=== PATIENT | male | born 2000 | race Caucasian/White ===

== ENCOUNTER 2019-12-20 22:04 | Emergency (ER) | payer MEDICAID, OTHER, SELFPAY ==
[~2019-12-20] VITALS: Ht 165.1 cm; Wt 76.2 kg
[2019-12-20] MEDS ORDERED: SODIUM CHLORIDE 0.9% 1,000ML IVBOLUS ONE (23:00)
[2019-12-20] MEDS ORDERED: ONDANSETRON 2MG/ML, 2ML IVPush ONE (23:00)
[2019-12-20] MEDS ORDERED: PROMETHAZINE 25 MG/ML, 1ML IM ONE (23:00)
[2019-12-20] MEDS ORDERED: PROMETHAZINE 25 MG/ML, 1ML ONE (23:10)
[2019-12-20] MEDS ORDERED: ONDANSETRON 2MG/ML, 2ML ONE (23:10)
[2019-12-20 23:15] VITALS: BP 144/85
[2019-12-20 23:19] LABS: PH, VENOUS 7.355 pH (7.320-7.420)
[2019-12-20] MEDS ORDERED: INSU100C SQ-INSULIN (23:20)
--- NOTE | 2019-12-20 23:20 | NUR ---
BREAK RN: PT. MEDICATED PER MAR. VS UPDATED. MOTHER AT BS. ALL SAFTEY MEASURES OBSERVED.
[2019-12-20 23:24] LABS: BASOPHILS # (AUTO) 0.04 x10^3/uL (0-0.1); BASOPHILS % (AUTO) 0 % (0-1); EOSINOPHILS # (AUTO) 0.24 x10^3/uL (0-0.4); EOSINOPHILS % (AUTO) 2 % (1-7); LYMPHOCYTES # (AUTO) 1.11 x10^3/uL (1-3.4); LYMPHOCYTES % (AUTO) 9 % (22-44); MD NO; MEAN CORPUSCULAR HEMOGLOBIN 29.2 pg (27.5-34.5); MEAN CORPUSCULAR HGB CONC 33.3 g/dL (33.2-36.2); MEAN CORPUSCULAR VOLUME 87.6 fL (81-97); MEAN PLATELET VOLUME 9.1 fL (7.4-10.4); MONOCYTES # (AUTO) 0.48 x10^3/uL (0.2-0.8); MONOCYTES % (AUTO) 4 % (2-9); NEUTROPHILS # (AUTO) 10.53 x10^3/uL (1.8-6.8); NEUTROPHILS % (AUTO) 85 % (42-75); PLATELET COUNT 286 x10^3/uL (130-400); RED CELL DISTRIBUTION WIDTH 12.6 % (9.4-14.8)
[2019-12-20 23:30] LABS: ALANINE AMINOTRANSFERASE 20 U/L (12-78); ALBUMIN 4.4 g/dL (3.4-5.0); ANION GAP 8 mmol/L (5-15); CALCIUM 9.3 mg/dL (8.5-10.1); CHLORIDE 104 mmol/L (98-107); CREATININE 0.81 mg/dL (0.7-1.3)
[2019-12-20 23:32] LABS: ALKALINE PHOSPHATASE 81 U/L (45-117); BILIRUBIN,TOTAL 0.5 mg/dL (0.2-1.0); CREATINE KINASE, TOTAL 202 U/L (39-308); TOTAL PROTEIN 8.2 g/dL (6.4-8.2)
[2019-12-21 00:01] LABS: ACETONE, SERUM Small (20mg/dL) (Negative)
--- NOTE | 2019-12-21 00:28 | NUR ---
Patient given discharge instructions and they have confirmed that they understand the instructions. Patient ambulatory with steady gait.
== END 2019-12-21 00:30 | disposition home or self-care (01) ==
LOC: ED 23:30
DX: E10.65 Type 1 diabetes mellitus with hyperglycemia (principal); R11.2 Nausea with vomiting, unspecified; R10.84 Generalized abdominal pain; R00.0 Tachycardia, unspecified; R19.7 Diarrhea, unspecified
CPT/HCPCS: 36415; 80053; 82010; 82550; 82803; 83690; 85025; 93005; 96361; 96372; 96374; 99284; J2405; J2550; J7030

== ENCOUNTER 2019-12-22 19:03 | Observation (INO) | payer OTHER ==
[~2019-12-22] VITALS: Ht 167.6 cm; Wt 69.7 kg
[~2019-12-22 19:03] MED LIST: INSU100C SQ-INSULIN
[2019-12-22 19:43] LABS: BASOPHILS # (AUTO) 0.04 x10^3/uL (0-0.1); BASOPHILS % (AUTO) 0 % (0-1); EOSINOPHILS # (AUTO) 0.34 x10^3/uL (0-0.4); EOSINOPHILS % (AUTO) 3 % (1-7); LYMPHOCYTES # (AUTO) 1.74 x10^3/uL (1-3.4); LYMPHOCYTES % (AUTO) 17 % (22-44); MD NO; MEAN CORPUSCULAR HEMOGLOBIN 29.1 pg (27.5-34.5); MEAN CORPUSCULAR VOLUME 88.2 fL (81-97); MEAN PLATELET VOLUME 8.4 fL (7.4-10.4); MONOCYTES # (AUTO) 0.57 x10^3/uL (0.2-0.8); MONOCYTES % (AUTO) 6 % (2-9); NEUTROPHILS # (AUTO) 7.68 x10^3/uL (1.8-6.8); NEUTROPHILS % (AUTO) 74 % (42-75); PLATELET COUNT 294 x10^3/uL (130-400); RED BLOOD COUNT 5.27 x10^6/uL (4.38-5.82); RED CELL DISTRIBUTION WIDTH 12.5 % (9.4-14.8)
[2019-12-22 19:54] LABS: ALANINE AMINOTRANSFERASE 22 U/L (12-78); ALBUMIN 4.2 g/dL (3.4-5.0); ANION GAP 7 mmol/L (5-15); CALCIUM 9.3 mg/dL (8.5-10.1); CHLORIDE 106 mmol/L (98-107); CREATININE 0.86 mg/dL (0.7-1.3)
[2019-12-22 19:56] LABS: ALKALINE PHOSPHATASE 86 U/L (45-117); BILIRUBIN,TOTAL 1.2 mg/dL (0.2-1.0); TOTAL PROTEIN 8.3 g/dL (6.4-8.2)
--- NOTE | 2019-12-22 20:06 | NUR ---
PT TO ROOM FROM LOBBY AT THIS TIME.
[2019-12-22 20:17] LABS: ACETONE, SERUM Trace (Negative)
--- NOTE | 2019-12-22 20:17 | NUR ---
GENERALIZED ABD PAIN, VOMITING SINCE SEDDAY, SEEN FOR SAME ON WED NOC, 99.6F FEVER AT HOME, PALPS SINCE LAST NOC. 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 ALL MONITORS IN PLACE. CALL LIGHT WITHIN REACH. RAILS UP X2. PT'S FATHER AT BEDSIDE.
--- NOTE | 2019-12-22 20:58 | NUR ---
PT AMB TO BR WITH STEADY GAIT. URINE CUP GIVEN.
[2019-12-22 21:12] LABS: MICROSCOPIC NOT IND
[2019-12-22 21:17] LABS: CULTURE INDICATED? NO
[2019-12-22] MEDS ORDERED: ONDANSETRON 2MG/ML, 2ML ONE (21:17)
[2019-12-22] MEDS ORDERED: ONDANSETRON 2MG/ML, 2ML IVPush ONE (21:30)
[2019-12-22] MEDS ORDERED: SODIUM CHLORIDE FLUSH 10ML SYR IVF ONE (21:30)
[2019-12-22] MEDS ORDERED: SODIUM CHLORIDE 0.9% 1,000ML IVBOLUS ONE (21:30)
--- NOTE | 2019-12-22 21:35 | NUR ---
PIV EST ON L AC WITH NO COMPLICATIONS. PT MEDICATED PER EMAR. PT TOLERATED WELL. NS INFUSING AT THIS TIME.
--- NOTE | 2019-12-22 22:31 | NUR ---
EDMD AT BEDSIDE AT THIS TIME.
--- NOTE | 2019-12-22 22:49 | NUR ---
WATER GIVEN FOR PO CHALLENGE AT THIS TIME.
--- NOTE | 2019-12-22 23:19 | NUR ---
PT STATES "I FEEL NAUSEATED STILL. I NEED MORE TIME. GIVE ME 30MIN OR SO." PA NOTIFIED.
[2019-12-22] MEDS: PROMETHAZINE 25 MG/ML, 1ML IM ONE ×2 (23:24→23:45)
--- NOTE | 2019-12-22 23:24 | NUR ---
PT REFUSED MED AT THIS TIME.
--- NOTE | 2019-12-22 23:39 | NUR ---
pt states"i wanna take one more med."
[2019-12-22] MEDS ORDERED: PROMETHAZINE 25 MG/ML, 1ML ONE (23:43)
--- NOTE | 2019-12-22 23:46 | NUR ---
PT MEDICATED PER EMAR FOR NAUSEA. PT STATES"I FEEL NAUSEATED AGAIN"
--- NOTE | 2019-12-23 00:09 | NUR ---
bg 66 at this time. pa notified. juice provided at this time.
--- NOTE | 2019-12-23 00:35 | NUR ---
PT STATES " I DON'T FEEL GOOD." PT IS PALE. PT'S AOX4. RESPS EVEN AND UNLABORED. ALL MONITORS IN PLACE. CALL LIGHT WITHIN REACH.
--- NOTE | 2019-12-23 00:47 | NUR ---
report given to [facility].
--- NOTE | 2019-12-23 00:53 | NUR ---
REPORT RECEIVED FROM FRANCK FARRELL. PLAN OF CARE DISCUSSED. FSBS [id number]
[2019-12-23] MEDS ORDERED: METOCLOPRAMIDE 5 MG/ML, 2ML IVPush PRN (01:30)
[2019-12-23] MEDS ORDERED: ACETAMINOPHEN 325 MG TABLET PO PRN (01:30)
[2019-12-23] MEDS ORDERED: ONDANSETRON 2MG/ML, 2ML IVPush PRN (01:30)
[2019-12-23] MEDS ORDERED: PROMETHAZINE 25 MG/ML, 1ML IM PRN (01:30)
--- NOTE | 2019-12-23 01:32 | NUR ---
REPORT GIVEN TO FRANCK MATOS. PLAN OF CARE DISCUSSED.
[2019-12-23 01:50] VITALS: BP 126/76
[2019-12-23 07:01] VITALS: BP 113/76
[2019-12-23 12:01] VITALS: BP 114/68
[2019-12-23 15:57] VITALS: BP 116/77
[2019-12-23] MEDS: D5%-0.45% NACL 1,000 ML IV SCH (17:33)
[2019-12-23 19:35] VITALS: BP 126/81
[2019-12-24 03:09] VITALS: BP 115/68
[2019-12-24] MEDS: D5%-0.45% NACL 1,000 ML IV SCH ×2 (06:01→20:10)
[2019-12-24 06:03] LABS: BASOPHILS # (AUTO) 0.05 x10^3/uL (0-0.1); BASOPHILS % (AUTO) 1 % (0-1); EOSINOPHILS # (AUTO) 0.52 x10^3/uL (0-0.4); EOSINOPHILS % (AUTO) 6 % (1-7); LYMPHOCYTES # (AUTO) 2.55 x10^3/uL (1-3.4); LYMPHOCYTES % (AUTO) 29 % (22-44); MD NO; MEAN CORPUSCULAR HEMOGLOBIN 29.1 pg (27.5-34.5); MEAN CORPUSCULAR HGB CONC 33.1 g/dL (33.2-36.2); MEAN CORPUSCULAR VOLUME 88.1 fL (81-97); MEAN PLATELET VOLUME 9.2 fL (7.4-10.4); MONOCYTES # (AUTO) 0.65 x10^3/uL (0.2-0.8); MONOCYTES % (AUTO) 7 % (2-9); NEUTROPHILS # (AUTO) 5.09 x10^3/uL (1.8-6.8); NEUTROPHILS % (AUTO) 58 % (42-75); PLATELET COUNT 248 x10^3/uL (130-400); RED BLOOD COUNT 4.81 x10^6/uL (4.38-5.82); RED CELL DISTRIBUTION WIDTH 12.4 % (9.4-14.8)
[2019-12-24 06:24] LABS: ANION GAP 8 mmol/L (5-15); CHLORIDE 110 mmol/L (98-107)
[2019-12-24 06:27] LABS: CREATININE 0.68 mg/dL (0.7-1.3)
[2019-12-24 07:32] VITALS: BP 116/69
[2019-12-24 14:14] VITALS: BP 130/80
[2019-12-24 19:33] VITALS: BP 138/86
[2019-12-25 02:26] VITALS: BP 129/80
[2019-12-25 05:53] LABS: ANION GAP 9 mmol/L (5-15); CALCIUM 9.1 mg/dL (8.5-10.1); CHLORIDE 107 mmol/L (98-107)
[2019-12-25 05:54] LABS: CREATININE 0.69 mg/dL (0.7-1.3)
[2019-12-25 08:07] VITALS: BP 128/76
[2019-12-25] MEDS: D5%-0.45% NACL 1,000 ML IV SCH (09:30)
== END 2019-12-25 14:05 | disposition home or self-care (01) ==
LOC: ED 20:17 → INTOOBSV 12-23 01:25 → EDIP 12-23 01:25 → 3N 12-23 01:45
PROVIDERS: ATTEND Family Medicine
DX: R11.2 Nausea with vomiting, unspecified (principal); E10.43 Type 1 diabetes mellitus with diabetic autonomic (poly)neuropathy; D72.829 Elevated white blood cell count, unspecified; G89.29 Other chronic pain; K90.0 Celiac disease; R17 Unspecified jaundice; Z79.4 Long term (current) use of insulin; Z96.41 Presence of insulin pump (external) (internal)
CPT/HCPCS: 36415; 78264; 80048; 80053; 81003; 82010; 82800; 82947; 82962; 83036; 83690; 85025; 87798; 93005; 96361; 96372; 96374; 96375; 96376; 99285; A9541; G0378; J2405; J2550; J2765; J7030

== ENCOUNTER 2019-12-25 20:10 | Inpatient (IN) | payer OTHER ==
[~2019-12-25] VITALS: Ht 167.6 cm; Wt 68.0 kg
--- NOTE | 2019-12-25 20:44 | NUR ---
pt toe d for n/v starting today at 1900. pt was admitted wednesday noc for same and dc today. pt states he was not n/v for 2 days prior until he got home today. pt connected to all monitors. tachy, all other vss. pt presents actively vomiting and diaphoretic with mother at bs. awaiting edmd assessment.
[2019-12-25] MEDS ORDERED: METOCLOPRAMIDE 5 MG/ML, 2ML ONE (20:48)
[2019-12-25] MEDS ORDERED: SODIUM CHLORIDE 0.9% 1,000ML IVBOLUS ONE (21:00)
[2019-12-25] MEDS ORDERED: METOCLOPRAMIDE 5 MG/ML, 2ML IVPush ONE (21:00)
--- NOTE | 2019-12-25 21:01 | NUR ---
TASK RN: PT. MEDICATED PER MAR, IVF INFUSING PER ORDER. PT. AMBULATORY TO BR WITH STEADY GAIT, ACCOMPANIED BY MOTHER.
--- NOTE | 2019-12-25 21:08 | NUR ---
TASK RN: ALL MONITORS AND IVF RECONNECTED WHEN PT. RETURNED FROM BR. ALL SAFETY MEASURES OBSERVED.
[2019-12-25 21:09] LABS: BASOPHILS # (AUTO) 0.07 x10^3/uL (0-0.1); BASOPHILS % (AUTO) 1 % (0-1); EOSINOPHILS # (AUTO) 0.46 x10^3/uL (0-0.4); EOSINOPHILS % (AUTO) 4 % (1-7); LYMPHOCYTES % (AUTO) 20 % (22-44); MD NO; MEAN CORPUSCULAR HEMOGLOBIN 29.3 pg (27.5-34.5); MEAN CORPUSCULAR HGB CONC 33.6 g/dL (33.2-36.2); MEAN CORPUSCULAR VOLUME 87.3 fL (81-97); MEAN PLATELET VOLUME 9.2 fL (7.4-10.4); MONOCYTES # (AUTO) 0.64 x10^3/uL (0.2-0.8); MONOCYTES % (AUTO) 6 % (2-9); NEUTROPHILS # (AUTO) 7.33 x10^3/uL (1.8-6.8); NEUTROPHILS % (AUTO) 69 % (42-75); PLATELET COUNT 322 x10^3/uL (130-400); RED BLOOD COUNT 5.29 x10^6/uL (4.38-5.82); RED CELL DISTRIBUTION WIDTH 12.4 % (9.4-14.8)
[2019-12-25 21:19] LABS: ALANINE AMINOTRANSFERASE 20 U/L (12-78); ALBUMIN 4.4 g/dL (3.4-5.0); ANION GAP 8 mmol/L (5-15); CALCIUM 9.9 mg/dL (8.5-10.1); CHLORIDE 102 mmol/L (98-107); CREATININE 0.93 mg/dL (0.7-1.3)
[2019-12-25 21:21] LABS: ALKALINE PHOSPHATASE 89 U/L (45-117); BILIRUBIN,TOTAL 0.5 mg/dL (0.2-1.0); TOTAL PROTEIN 8.6 g/dL (6.4-8.2)
--- NOTE | 2019-12-25 21:41 | NUR ---
assessment by Dr. Bernal complete. plan for po challenge. water provided to pt. vss. pt states decrease in nausea and has had no vomiting since medication administration. no needs expressed at this time. call light within reach. tm.
[2019-12-25] MEDS ORDERED: DEXTROSE 50%, 50ML SYRINGE ONE (22:18)
[2019-12-25] MEDS ORDERED: PROMETHAZINE 25 MG/ML, 1ML ONE (22:18)
--- NOTE | 2019-12-25 22:26 | NUR ---
pt stated he thought he bs was low. tested 59 on hospital glucometer. pt also failed po challenge. edmd aware of both. new orders received and implemented. dextrose and phenergan administered. tachy, pt actively vomiting. no needs expressed. call light within reach. wctm.
[2019-12-25] MEDS ORDERED: PROMETHAZINE 25 MG/ML, 1ML IM ONE (22:30)
[2019-12-25] MEDS ORDERED: DEXTROSE 50%, 50ML SYRINGE IVPush ONE (22:30)
[2019-12-25] MEDS ORDERED: PANTOPRAZOLE 40 MG IV ONE (23:13)
--- NOTE | 2019-12-25 23:17 | NUR ---
GI CONSULT COMPLETE. PT RESTING IN ROOM. VSS. PT MEDICARTED PER MAR. NO NEEDS EXPRESSED. AWAITING ROOM ASSIGNMENT.
[2019-12-25] MEDS ORDERED: PANTOPRAZOLE 40 MG IV IVPush SCH (23:30)
[2019-12-26] MEDS ORDERED: PROMETHAZINE 25 MG/ML, 1ML IM PRN (00:30)
[2019-12-26] MEDS ORDERED: hydrALAzine 20 MG/ML, 1ML IVPush PRN (00:30)
[2019-12-26] MEDS ORDERED: DEXTROSE 50%, 50ML SYRINGE IVPush PRN (00:30)
[2019-12-26] MEDS ORDERED: ONDANSETRON 2MG/ML, 2ML IVPush PRN (00:30)
[2019-12-26] MEDS: INSULIN GLARGINE 100 UNITS/ML, PEN SQ-INSULIN SCH ×2 (00:30→21:10)
[2019-12-26] MEDS ORDERED: ACETAMINOPHEN 325 MG TABLET PO PRN (00:30)
[2019-12-26] MEDS ORDERED: DEXTROSE 4 GM TAB.CHEW PO PRN (00:30)
[2019-12-26] MEDS ORDERED: GLUCAGON 1 MG IM PRN (00:30)
[2019-12-26 00:48] VITALS: BP 109/72
[2019-12-26] MEDS: LACTATED RINGERS 1,000 ML IV SCH ×2 (01:05→10:44)
[2019-12-26 06:58] VITALS: BP 106/71
[2019-12-26] MEDS: PANTOPRAZOLE 40 MG IV IVPush SCH ×2 (08:17→17:02)
[2019-12-26] MEDS: SODIUM CHLORIDE FLUSH 10ML SYR IVF SCH ×2 (09:53→21:09)
[2019-12-26] MEDS ORDERED: INSULIN LISPRO 100 UNITS/ML, PEN SQ-INSULIN SCH (12:30)
[2019-12-26] MEDS ORDERED: INSULIN LISPRO 100 UNITS/ML, PEN SQ-INSULIN ONE (12:30)
[2019-12-26 15:22] LABS: ANA SCREEN POSITIVE (Negative)
[2019-12-26 15:32] LABS: ANTI-NUCLEAR ANTIBODY PATTERN NUCLEOLAR
[2019-12-26 15:46] VITALS: BP 123/73
[2019-12-26 19:17] VITALS: BP 116/78
[2019-12-27] MEDS: LACTATED RINGERS 1,000 ML IV SCH (00:18)
[2019-12-27 01:07] VITALS: BP 115/80
[2019-12-27 06:35] LABS: ANION GAP 7 mmol/L (5-15); CHLORIDE 106 mmol/L (98-107)
[2019-12-27 06:38] LABS: CREATININE 0.68 mg/dL (0.7-1.3)
[2019-12-27 07:30] VITALS: BP 115/76
[2019-12-27] MEDS: PANTOPRAZOLE 40 MG IV IVPush SCH ×2 (08:14→16:54)
[2019-12-27] MEDS: SODIUM CHLORIDE FLUSH 10ML SYR IVF SCH ×2 (08:14→21:00)
[2019-12-27 15:00] VITALS: BP 122/78
[2019-12-27 18:33] VITALS: BP 124/80
[2019-12-27] MEDS ORDERED: INSULIN GLARGINE 100 UNITS/ML, PEN SQ-INSULIN SCH (21:00)
[2019-12-28] MEDS ORDERED: LACTATED RINGERS 1,000 ML IV SCH (00:30)
[2019-12-28 01:49] VITALS: BP 109/68
[2019-12-28] MEDS: PANTOPRAZOLE 40 MG IV IVPush SCH (07:30)
[2019-12-28] MEDS: SODIUM CHLORIDE FLUSH 10ML SYR IVF SCH (09:00)
[2019-12-28] MEDS ORDERED: PANT40TA3 PO (09:03)
== END 2019-12-28 10:22 | disposition home or self-care (01) | DRG 392 ==
LOC: ED 20:45 → INTOOBSV 23:12 → EDIP 23:12 → OBSVTOIN 23:12 → 3N 12-26 00:48
PROVIDERS: ADMIT Family Medicine; ATTEND Family Medicine
DX: R11.2 Nausea with vomiting, unspecified (principal); Z96.41 Presence of insulin pump (external) (internal); K90.0 Celiac disease; E10.649 Type 1 diabetes mellitus with hypoglycemia without coma; Z79.4 Long term (current) use of insulin; Z83.3 Family history of diabetes mellitus
CPT/HCPCS: 36415; 74240; 80048; 80053; 82784; 82962; 83516; 83690; 83735; 84100; 85025; 86038; 86039; 96372; 96374; 96375; J2405; J2550; C9113; G0378; J1815; J2765; J7030; J7120

== ENCOUNTER 2020-01-10 19:34 | Emergency (ER) | payer OTHER ==
[~2020-01-10] VITALS: Ht 167.6 cm; Wt 64.2 kg
[~2020-01-10 19:34] MED LIST changes: +PANT40TA3 PO
[2020-01-10] MEDS ORDERED: LORazepam 2 MG/ML, 1ML IVPush ONE (20:00)
[2020-01-10] MEDS ORDERED: PANTOPRAZOLE 40 MG IV IV ONE (20:00)
[2020-01-10] MEDS ORDERED: PROMETHAZINE 25 MG/ML, 1ML IM ONE (20:00)
[2020-01-10] MEDS ORDERED: SODIUM CHLORIDE FLUSH 10ML SYR IVF ONE (20:00)
[2020-01-10] MEDS ORDERED: SODIUM CHLORIDE 0.9% 1,000 ML IV ONE (20:04)
[2020-01-10] MEDS ORDERED: PROMETHAZINE 25 MG/ML, 1ML ONE (20:12)
[2020-01-10] MEDS ORDERED: PANTOPRAZOLE 40 MG IV ONE (20:13)
[2020-01-10] MEDS ORDERED: LORazepam 2 MG/ML, 1ML ONE (20:13)
[2020-01-10 20:30] LABS: BASOPHILS # (AUTO) 0.01 x10^3/uL (0-0.1); BASOPHILS % (AUTO) 0 % (0-1); EOSINOPHILS # (AUTO) 0.25 x10^3/uL (0-0.4); EOSINOPHILS % (AUTO) 4 % (1-7); LYMPHOCYTES % (AUTO) 21 % (22-44); MD NO; MEAN CORPUSCULAR HEMOGLOBIN 29.3 pg (27.5-34.5); MEAN CORPUSCULAR HGB CONC 33.1 g/dL (33.2-36.2); MEAN CORPUSCULAR VOLUME 88.6 fL (81-97); MEAN PLATELET VOLUME 9.8 fL (7.4-10.4); MONOCYTES # (AUTO) 0.41 x10^3/uL (0.2-0.8); MONOCYTES % (AUTO) 6 % (2-9); NEUTROPHILS # (AUTO) 4.83 x10^3/uL (1.8-6.8); NEUTROPHILS % (AUTO) 69 % (42-75); PLATELET COUNT 277 x10^3/uL (130-400); RED BLOOD COUNT 5.37 x10^6/uL (4.38-5.82); RED CELL DISTRIBUTION WIDTH 12.7 % (9.4-14.8)
[2020-01-10] MEDS ORDERED: SODIUM CHLORIDE 0.9% 1,000ML IVBOLUS ONE (20:30)
[2020-01-10 20:43] LABS: ALANINE AMINOTRANSFERASE 19 U/L (12-78); ALBUMIN 4.6 g/dL (3.4-5.0); ANION GAP 8 mmol/L (5-15); CALCIUM 9.4 mg/dL (8.5-10.1); CHLORIDE 100 mmol/L (98-107); CREATININE 0.93 mg/dL (0.7-1.3)
[2020-01-10 20:43] LABS: MICROSCOPIC NOT IND
[2020-01-10 20:44] LABS: ALKALINE PHOSPHATASE 94 U/L (45-117); BILIRUBIN,TOTAL 1.2 mg/dL (0.2-1.0); TOTAL PROTEIN 8.6 g/dL (6.4-8.2)
[2020-01-10 20:47] LABS: CULTURE INDICATED? NO
--- NOTE | 2020-01-10 20:52 | NUR ---
PT PRESENTS TO THE ED WITH C/O GENERALIZED ABDOMINAL PAIN, NAUSEA AND VOMITING X 3 DAYS. PT. 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 REPORTS BLOOD SUGAR AT HOME IS USUALLY IN THE 90S. REPORTS HAS HIS INSULIN PUMP TURNED OFF AT THIS TIME. IV STARTED, MEDS GIVEN, LABS DRAWN, UA SENT. AWAITING CT.
[2020-01-10] MEDS ORDERED: OMNIPAQUE 350 MG/ML, 100ML BOTTLE ONE (20:59)
--- NOTE | 2020-01-10 21:17 | NUR ---
PT REPORTS FEELING LESS NAUSEATED AFTER IV MEDS. AWAITING LAB AND CT RESULTS.
[2020-01-10 21:24] LABS: ACETONE, SERUM Small (20mg/dL) (Negative)
--- NOTE | 2020-01-10 22:02 | NUR ---
PROVIDER TO BEDSIDE FOR RECHECK.
--- NOTE | 2020-01-10 22:12 | NUR ---
PT ATTEMPTING ORAL CHALLENGE AT THIS TIME.
--- NOTE | 2020-01-10 22:29 | NUR ---
ABLE TO TOLERATE ORAL FLUIDS W/O VOMITING.
[2020-01-10 22:43] VITALS: BP 130/72
== END 2020-01-10 22:46 | disposition home or self-care (01) ==
LOC: ED 21:02
DX: R11.2 Nausea with vomiting, unspecified (principal); E10.9 Type 1 diabetes mellitus without complications
CPT/HCPCS: 36415; 74177; 80053; 81003; 82010; 82800; 83605; 83690; 85025; 96361; 96372; 96374; 96375; 99285; C9113; J2060; J2550; J7030; Q9967

== ENCOUNTER 2020-04-01 21:31 | Emergency (ER) | payer OTHER ==
[~2020-04-01] VITALS: Ht 167.6 cm; Wt 60.0 kg
--- NOTE | 2020-04-01 22:45 | NUR ---
pt to room from lobby
--- NOTE | 2020-04-01 22:55 | NUR ---
assumed care of pt. pt BIB family from home c/o abd pain and vomiting x 4 months, increasing today. pt reports that he is a type 1 diabetic with an insulin pump and that he has celieac disease. reports that he is compliant with his diet. RLQ pain today, tender to palpation, no guarding no rebound tenderness. denies any urinary c/o. denies diarrhea. pt reports that he is curently being followed by GI Dr. 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 no vomiting at this time. reports a weight loss of 30 lbs total.
[2020-04-01] MEDS ORDERED: PROM25VI5 PR (23:01)
--- NOTE | 2020-04-01 23:25 | NUR ---
lab at bedside
[2020-04-01] MEDS ORDERED: SODIUM CHLORIDE FLUSH 10ML SYR IVF ONE (23:30)
[2020-04-01 23:31] LABS: BASOPHILS # (AUTO) 0.09 x10^3/uL (0-0.1); BASOPHILS % (AUTO) 1 % (0-1); EOSINOPHILS # (AUTO) 0.32 x10^3/uL (0-0.4); EOSINOPHILS % (AUTO) 4 % (1-7); LYMPHOCYTES # (AUTO) 2.38 x10^3/uL (1-3.4); LYMPHOCYTES % (AUTO) 26 % (22-44); MD NO; MEAN CORPUSCULAR HEMOGLOBIN 29.8 pg (27.5-34.5); MEAN CORPUSCULAR HGB CONC 32.9 g/dL (33.2-36.2); MEAN CORPUSCULAR VOLUME 90.5 fL (81-97); MEAN PLATELET VOLUME 9.9 fL (7.4-10.4); MONOCYTES # (AUTO) 0.49 x10^3/uL (0.2-0.8); MONOCYTES % (AUTO) 5 % (2-9); NEUTROPHILS # (AUTO) 5.78 x10^3/uL (1.8-6.8); NEUTROPHILS % (AUTO) 64 % (42-75); PLATELET COUNT 230 x10^3/uL (130-400); RED BLOOD COUNT 4.53 x10^6/uL (4.38-5.82); RED CELL DISTRIBUTION WIDTH 12.9 % (9.4-14.8)
[2020-04-01 23:43] LABS: ALANINE AMINOTRANSFERASE 16 U/L (12-78); CALCIUM 8.8 mg/dL (8.5-10.1); CHLORIDE 107 mmol/L (98-107); CREATININE 0.79 mg/dL (0.7-1.3)
[2020-04-01 23:50] LABS: ALKALINE PHOSPHATASE 78 U/L (45-117); BILIRUBIN,TOTAL 0.4 mg/dL (0.2-1.0); TOTAL PROTEIN 7.3 g/dL (6.4-8.2)
[2020-04-02 00:36] VITALS: BP 103/65
[2020-04-02 03:47] LABS: ANION GAP 10 mmol/L (5-15)
== END 2020-04-02 00:40 | disposition home or self-care (01) ==
LOC: ED 22:00
DX: R11.2 Nausea with vomiting, unspecified (principal); R10.13 Epigastric pain; E10.9 Type 1 diabetes mellitus without complications
CPT/HCPCS: 36415; 80053; 83690; 85025; 99283